=== PATIENT | male | born 1980 | race African-American/Black ===

== ENCOUNTER 2023-05-13 10:30 | Emergency (ER) | payer MEDICAID ==
[~2023-05-13] VITALS: Ht 182.9 cm; Wt 117.0 kg
[2023-05-13 10:36] VITALS: BP 163/98; RESP 20; TEMP 98.3; O2SAT 100
[2023-05-13 10:38] VITALS: PULSE 87
[2023-05-13 11:12] LABS: CLARITY URINE CLEAR (CLEAR); COLOR URINE YELLOW (YELLOW); GLUCOSE URINE NEGATIVE (NEGATIVE); KETONES URINE NEGATIVE (NEGATIVE); LEUKOCYTE ESTERASE URINE NEGATIVE (NEGATIVE); NITRITE URINE NEGATIVE (NEGATIVE); OCCULT BLOOD URINE 2+ (NEGATIVE); PH URINE 5.5 (4.5-8.0); PROTEIN URINE TRACE (NEGATIVE); SPECIFIC GRAVITY URINE 1.019 (1.005-1.030); UROBILINOGEN URINE 0.2 E.U./dL (0.2-1.0)
[2023-05-13 11:26] LABS: BACTERIA URINE FEW; SQUAMOUS EPITHELIAL CELL URINE NONE SEEN /lpf (RARE/1+); WBC URINE 0-2 /hpf (0-2); YEAST URINE NONE SEEN
== END 2023-05-13 12:56 | disposition home or self-care (01) ==
LOC: ER 11:30
DX: R31.9 Hematuria, unspecified (principal); J45.909 Unspecified asthma, uncomplicated; Z98.890 Other specified postprocedural states
CPT/HCPCS: 81003; 99283